=== PATIENT | female | born 1955 | race Caucasian/White ===

== ENCOUNTER 2020-07-27 07:38 | Inpatient (IN) | payer OTHER ==
[2020-07-26 23:44] VITALS: BP 96/68
[2020-07-27] VITALS (15 sets, daily range): BP systolic 90–110; BP diastolic 53–68
[~2020-07-27] VITALS: Ht 157.5 cm; Wt 115.4 kg
[~2020-07-27 07:38] MED LIST: ALBUAER3 IN; ALEN1TAB32 PO; ANAS1TAB7 PO; CETI10TA80 PO; CHOL100055 PO; CITA-77 PO; HYDR25TA4 PO; LISI-648 PO; TRAZ50TA2 PO
[2020-07-27] MEDS ORDERED: CELECOXIB 100 MG CAP PO ONE (08:00)
[2020-07-27] MEDS ORDERED: ACETAMINOPHEN IV 1000 MG/100ML (10MG/ML) IV ONE (08:00)
[2020-07-27] MEDS ORDERED: PREGABALIN CAPSULE 75 MG CAP PO ONE (08:00)
[2020-07-27] MEDS ORDERED: fentaNYL CITRATE 100 MCG/2 ML VL ONE (08:05)
[2020-07-27] MEDS ORDERED: MORPHINE SULF(PF) 0.5MG/ML 10ML VIAL ONE (08:05)
[2020-07-27] MEDS ORDERED: LIDOCAINE 2% (LOCAL ANESTH.) PF 5ml SDV ONE (08:06)
[2020-07-27] MEDS ORDERED: PHENYLEPHRINE HCL 10 MG/ML VL ONE (08:06)
[2020-07-27] MEDS ORDERED: GLYCOPYRROLATE 0.2 MG/ML 1ML VIAL ONE (08:06)
[2020-07-27] MEDS ORDERED: ePHEDrine SULFATE 50 MG/ML AMP ONE (08:06)
[2020-07-27] MEDS ORDERED: KETOROLAC TROMETH 30 MG/ML 1ML VIAL ONE (08:06)
[2020-07-27] MEDS ORDERED: KETAMINE HCL 10 ML ONE (08:06)
[2020-07-27] MEDS ORDERED: MIDAZOLAM HCL 1MG/1ML-2 ML VIAL ONE (08:06)
[2020-07-27] MEDS ORDERED: ONDANSETRON HCL 4 MG/2 ML VIAL ONE (08:06)
[2020-07-27] MEDS ORDERED: ACETAMINOPHEN IV 100 ML IV ONE (08:07)
[2020-07-27] MEDS ORDERED: PREGABALIN CAPSULE 75 MG CAP ONE (08:07)
[2020-07-27] MEDS ORDERED: BUPIVACAINE 0.5% MPF INJ 30ML SDV IJ ONE (08:48)
[2020-07-27] MEDS ORDERED: ceFAZolin 1GM/50ML 100 ML IV ONE (08:53)
[2020-07-27] MEDS ORDERED: FAMOTIDINE (10MG/ML) 2ML VL IV ONE (09:02)
[2020-07-27] MEDS ORDERED: EPINEPHrine HCL 1 MG/1 ML AMP ONE ×2 (09:07→10:06)
[2020-07-27] MEDS ORDERED: TETRACAINE 1% INJ 2 ML VIAL IJ ONE (09:09)
[2020-07-27] MEDS ORDERED: TRANEXAMIC ACID 20 ML ONE (09:58)
[2020-07-27] MEDS ORDERED: ROPIVACAINE 0.5% (5MG/ML) 20ML AMPULE IJ ONE (11:59)
[2020-07-27] MEDS ORDERED: diphenhdrAMINE HCL 50 MG/1 ML VL IV PRN (12:15)
[2020-07-27] MEDS ORDERED: ONDANSETRON HCL 4 MG/2 ML VIAL IV PRN ×2 (12:15)
[2020-07-27] MEDS ORDERED: DexAMETHasone SOD PHOS 10MG/1ML VIAL INJ IV PRN (12:15)
[2020-07-27] MEDS ORDERED: NALOXONE HCL 0.4 MG/ML VIAL IV PRN (12:15)
[2020-07-27] MEDS ORDERED: NALBUPHINE HCL 10 MG/1ml INJECTION SUBCUT ONE (12:15)
[2020-07-27] MEDS ORDERED: MORPHINE SULF INJ 2 MG/ML SYRINGE 1ML IV PRN (12:30)
[2020-07-27] MEDS ORDERED: NITROGLYCERIN 0.4 MG SL TAB SL PRN (12:30)
[2020-07-27] MEDS ORDERED: ACETAMINOPHEN 325 MG TAB PO PRN (12:30)
[2020-07-27] MEDS ORDERED: HYDROcodone-ACET 10/325MG TAB PO PRN ×2 (12:30)
[2020-07-27] MEDS ORDERED: MORPHINE SULFATE 4 MG/ML SYR/VIAL IV PRN (12:30)
[2020-07-27] MEDS ORDERED: ALBUTEROL SULF HFA 90MCG INH 200DOSE IN PRN (13:15)
--- NOTE | 2020-07-27 13:29 | NUR ---
Telemetry admit from [facility] SANDY CHRISTIANSON admitted to Telemetry unit after SBAR received. Patient oriented to CLAUDIA marr RN, unit, room 279B and unit policies regarding patient care and visiting hours. Patient now on continuous telemetry monitoring, tele box #89 and telemetry reading on arrival to unit is SR74. Patient placed on bedside oxygen and continuous pulse ox monitor as well as BP cuff q1h, weighed by bed scale and encouraged to call if they need something. All questions and concerns addressed, patient verbalized understanding.
[2020-07-27] MEDS: D5W/LACTATED RINGERS 1,000 ML IV SCH ×2 (14:05→22:30)
--- NOTE | 2020-07-27 14:05 | NUR ---
CALLED PHARMACY FOR ANCEF PER TECH THEY WILL SEND UP MED
[2020-07-27] MEDS: ceFAZolin 2GM/100ML 100 ML IV SCH ×2 (15:14→20:30)
[2020-07-27] MEDS ORDERED: ALBUTEROL SULF 2.5 MG/0.5ML(0.5%) NEB SOLN NEB PRN (16:45)
[2020-07-27] MEDS: KETOROLAC TROMETH 30 MG/ML 1ML VIAL IV SCH (17:57)
--- NOTE | 2020-07-27 17:58 | NUR ---
PATIENT IN CHAIR AT BEDSIDE Standby assist, patient tolerated well.
--- NOTE | 2020-07-27 19:07 | NUR ---
Respiratory note: ASSESSED PT FOR PRN MED NEB AT THIS TIME, PT DENIES SOB AT THIS TIME, NO RESP DISTRESS NOTED, NO TX INDICATED. PULSE OX 99% ON 2L NC, HR 66, RR 20. TITRATED FIO2 TO 1LNC AT THIS TIME
[2020-07-27] MEDS ORDERED: CITALOPRAM HYDROBR 20 MG TAB PO SCH (22:00)
[2020-07-27] MEDS ORDERED: LISINOPRIL 10 MG TAB PO SCH (22:00)
[2020-07-27] MEDS ORDERED: traZODone HCL 50 MG TAB PO SCH (22:00)
[2020-07-27] MEDS ORDERED: HCTZ 25 MG TAB PO SCH (22:00)
[2020-07-27] MEDS ORDERED: ARIMIDEX 1 MG PO SCH (22:00)
[2020-07-28] VITALS (9 sets, daily range): BP systolic 92–110; BP diastolic 53–77
[2020-07-28] MEDS: KETOROLAC TROMETH 30 MG/ML 1ML VIAL IV SCH ×3 (01:00→13:17)
--- NOTE | 2020-07-28 08:00 | NUR ---
ENTERED ROOM PT A/O, DENIES ANY KNEE PAIN. DRESSING C/D/I. SENA WAS REMOVED PER ORDERS. EATING ET DRINKING WELL. DENIES ANY NEEDS.
[2020-07-28] MEDS: ASPirin-EC 81 mg tab PO SCH ×2 (08:26→10:00)
--- NOTE | 2020-07-28 08:52 | NUR ---
Mccoy catheter dc'd Order to discontinue mccoy catheter. Mccoy dc'd with clean technique following deflation of balloon. Patient tolerated well with no complaints of pain. Continue care.
[2020-07-28 10:52] LABS: Basophils # (auto) 0.1 10 ^3/uL (0-0.2); Eosinophils # (auto) 0.1 10 ^3/uL (0-0.8); Eosinophils % (auto) 1.6 % (0.0-7.0); Hematocrit 33.4 % (36.0-46.0); Hemoglobin 11.2 g/dL (12.2-16.2); Lymphocytes # (auto) 0.9 10 ^3/uL (0.4-5.4); Lymphocytes % (auto) 12.1 % (10.0-50.0); Mean Corpuscular Hemoglobin 31.6 pg (28.0-32.0); Mean Corpuscular Hgb Conc. 33.4 g/dL (32.0-36.0); Mean Corpuscular Volume 94.5 fL (80.0-100.0); Monocytes # (auto) 0.8 10 ^3/uL (0-1.3); Neutrophils # (auto) 5.6 10 ^3/uL (1.6-8.6); Neutrophils % (auto) 74.3 % (37.0-80.0); Platelet Count (auto) 203 10^3/uL (140-450); Red Blood Cells 3.53 10^6/uL (4.0-5.20); Red Cell Distribution Width 14.7 % (11.8-14.3); White Blood Cell 7.5 10^3/uL (4.4-10.8)
[2020-07-28 11:12] LABS: BUN/Creatinine Ratio 17.4; Calcium 8.5 mg/dL (8.5-10.1); Potassium 3.7 mmol/L (3.5-5.1)
--- NOTE | 2020-07-28 13:47 | NUR ---
[employer] Received a page from SAROJ Arnold advising me patient has MD order for home health physical therapy. Faxed clinical information to [facility] Fax;[phone] who will assist with home health for patient Ph: [phone]. Per CM Bakari with [facility] he will arrange home health for patient. Informed SAROJ Arnold.
--- NOTE | 2020-07-28 17:41 | NUR ---
Discharge instructions given as ordered. Encourage to follow up with PMD as instructed. All questions and concerns addressed. Patient verbalized understanding. Medication reconciliation form completed and copy given to patient. Home medications GIVEN. IV removed with catheter intact, pressure dressing applied, mccoy catheter removed. Telemetry unit returned to ICU. Patient taken to vehicle via wheelchair with all personal belongings, accompanied by staff and family member. No distress noted at time of departure. Addendum: 07/28/20 at 0764 by PEDRO LUIS GHOSH RN RN PT VOIDED BEFORE LEAVING HOSPITAL
== END 2020-07-28 16:30 | disposition home health service (06) | DRG 470 ==
LOC: TELE 07:38 → EDSTATUS 09:00 → TELE-WESTW 13:24
PROVIDERS: ADMIT Orthopaedic Surgery; ATTEND Orthopaedic Surgery
PROC: 0SRC0J9 Replacement of Right Knee Joint with Synthetic Substitute, Cemented, Open Approach (ICD-10-PCS; principal; 2020-07-27 09:20)
DX: M17.11 Unilateral primary osteoarthritis, right knee (principal); D62 Acute posthemorrhagic anemia; Z68.41 Body mass index [BMI] 40.0-44.9, adult; J45.909 Unspecified asthma, uncomplicated; E66.9 Obesity, unspecified; Z20.828 Contact with and (suspected) exposure to other viral communicable diseases; I10 Essential (primary) hypertension; J44.9 Chronic obstructive pulmonary disease, unspecified; F32.9 Major depressive disorder, single episode, unspecified; M21.061 Valgus deformity, not elsewhere classified, right knee; Z88.5 Allergy status to narcotic agent
CPT/HCPCS: 36415; 73562; 80048; 85025; 86850; 86900; 86901; 97163; G0378; J0131; J0171; J0690; J1885; J2001; J2250; J2405; J3490